=== PATIENT | male | born 1960 ===

== ENCOUNTER 2023-01-04 10:32 | Day surgery (SDC) | payer OTHER, SELFPAY ==
--- NOTE | 2023-01-04 | PATH_ITS ---
[facility] Accession Number: [id number] No. of containers..02 Tissue . 01 Material submitted: . PART A: colon - CECUM POLYP PART B: colon - SIGMOID POLYP . 01 Diagnosis: A. Cecal Polyp: Tubular adenoma. . B. Sigmoid Colon Polyp: Tubular adenoma. MRV 01/08/2023 1523 Local . 01 Electronically signed: . Taco Bates MD, PhD, Pathologist NPI- [id number] . 01 Gross description: . Part A: CECUM POLYP: Received in formalin are 4 fragment(s) of dias, soft tissue measuring 0.1 x 0.1 x 0.1 cm to 0.8 x 0.7 x 0.7 cm submitted entirely in 1 cassette(s) Part B: SIGMOID POLYP: Received in formalin is 1 fragment(s) of dias, soft tissue measuring 0.3 x 0.2 x 0.2 cm submitted entirely in 1 cassette(s) /MIL 01/07/2023 0040 Local . 01 Pathologist provided ICD-10: D12.0, D12.5 . 01 CPT . 624526, 961064 Specimen Comment: A courtesy copy of this report has been sent to [phone] Performed at: 01 [facility] [address] [place] [address] [address], [place], [place] [id number] MD Luis Miguel Farfan MD Phone: [phone]
[2023-01-04 10:49] VITALS: BP 135/77; PULSE 43; RESP 16; TEMP 36.7; O2SAT 100; BMI 23.6
[2023-01-04] MEDS: LACTATED RINGERS 1,000 ML 42 ML IV (11:01)
--- NOTE | 2023-01-04 12:06 | PM.HP.1 ---
History of Present Illness History of Present Illness Date Patient Seen: 01/04/23 Time Patient Seen: 12:06 Chief complaint: Screening Colonoscopy Narrative: Here for colon cancer screening. Family history of colon cancer in his mom and half brother. [facility] Social History household members: spouse Smoking Status: Never smoker alcohol intake: current Meds Home Medications and Allergies Home Medications Medication Instructions Recorded Confirmed Type flaxseed 1,000 mg capsule mg PO 01/04/23 History glucosamine sulfate 500 mg tablet 500 mg PO DAILY 01/04/23 01/04/23 History (Glucosamine) Allergies Allergy/AdvReac Type Severity Reaction Status Date / Time No Known Drug Allergies Allergy Verified 01/04/23 10:48 Exam Vital Signs (past 8 hours): - 01/04/23 10:49 Temperature 98.1 F Pulse Rate 43 L Respiratory Rate 16 Blood Pressure 135/77 Pulse Oximetry 100 Oxygen Delivery Method Room Air Oxygen Delivery Method Room Air Const General: cooperative HENMT Head: normal to inspection Eyes General: appearance normal, both eyes and all related structures Neck Neck: normal visual inspection Chest Chest: normal inspection of the chest Resp Effort & Inspection: normal respiratory effort Cardio Rate: regular rate GI Inspection: normal to inspection Skin General: no rashes or lesions noted Neuro General: patient alert and patient awake Extrem General: normal to inspection and no pedal edema Psych Appearance: grossly normal Assessment & Plan Assessment & Plan narrative: 62-year-old male with a family history of colon cancer. Colon cancer screening is indicated today. Colonoscopy is pursued today.
--- NOTE | 2023-01-04 12:47 | P.OP.COLON_ITS ---
Operative Date/Time/Diagnoses Date of procedure: 01/04/23 Time of procedure: 12:47 Pre-op diagnosis: Family history of colon cancer Post-op diagnosis: same Procedure & Clinicians Study performed: Colonoscopy with hot snare polypectomy and cold forceps polypectomy Same procedure as scheduled: Yes Indications: Family history of colon cancer Surgeon: Luke Savage Procedure Notes SCOAP/Timeout: Done Procedure in detail: After the risks and benefits were explained, written and verbal informed consent was obtained. The patient was brought into the procedure room and placed into the left lateral decubitus position. Please see anesthesia notes for sedation details. Digital rectal examination was accomplished. The scope was introduced into the patient and advanced under direct visualization to the cecum as identi fied by the appendiceal orifice and ileocecal valve. The scope was slowly withdrawn to carefully examine the mucosa for any defects or lesions. Comprehensive imaging was accomplished throughout the rectum including the dentate line. The colon was decompressed, the scope was then removed from the patient who tolerated the procedure well. Adult colonoscope Bowel prep adequate Scope withdrawal time: 20 minutes Sedation minutes: 29 Complications: none Impression: There was some diverticulosis in the left colon. In the sigmoid there was a 6 mm sessile polyp removed with hot snare. In the cecum there was an approximately 10 mm sessile polyp immediately adjacent to the appendiceal orifice. This was addressed with a hot snare. There was a small fragment of adenomatous mucosa that remained after the initial excision. This small focus was just on the lip of the appendiceal orifice. I removed this with cold forceps. All of the polyp appeared to have been excised. Endoscopic diagnosis 1. Colon polyps 2. Diverticulosis Post-procedure Plan for aftercare: 1. Await histopathology. 2. Considering the location of the larger polyp in the cecum and the required piecemeal excision, surveillance colonoscopy will likely be suggested for 6 months. Disposition: PACU
[2023-01-04 12:50] VITALS: BP 80/51; PULSE 43; RESP 13; TEMP 36.4; O2SAT 99
[2023-01-04 12:53] VITALS: BP 82/48; PULSE 41; RESP 14; O2SAT 99
[2023-01-04 12:58] VITALS: BP 85/52; PULSE 45; RESP 17; O2SAT 100
[2023-01-04 13:05] VITALS: BP 94/68; PULSE 42; RESP 12; RESP 16; TEMP 36.4; TEMP 36.6; O2SAT 100
[2023-01-04 13:35] VITALS: BP 113/73; PULSE 41; RESP 18; O2SAT 100
--- NOTE | 2023-01-04 13:37 | SUR.PHASEII ---
Gave pt discharge instructions and pt states he is ready to go but that he is tired. pt states he is ready to eat and to go home and take a nap.
== END 2023-01-04 13:39 | disposition home or self-care (01) ==
PROVIDERS: PCP Internal Medicine; Referring Provider Internal Medicine Gastroenterology; Visit Provider Internal Medicine Gastroenterology
PROC: 0DJD8ZZ Inspection of Lower Intestinal Tract, Via Natural or Artificial Opening Endoscopic (ICD-10-PCS; CPT 45378; principal; 2023-01-04 11:30)
DX: Z12.11 Encounter for screening for malignant neoplasm of colon (principal); Z80.0 Family history of malignant neoplasm of digestive organs; K57.30 Diverticulosis of large intestine without perforation or abscess without bleeding; D12.0 Benign neoplasm of cecum; D12.5 Benign neoplasm of sigmoid colon
CPT/HCPCS: 45385; 45380; J2704

== ENCOUNTER 2023-08-23 13:41 | Day surgery (SDC) | payer OTHER, SELFPAY ==
--- NOTE | 2023-08-23 | PATH_ITS ---
[facility] Accession Number: [id number] No. of containers..01 Tissue . 01 Material submitted: . colon - POLYP APPENDICEAL ORIFICE . 01 Diagnosis: Appendiceal Orifice, Polyp: Tubular adenoma. MRV 08/25/2023 1354 Local . 01 Electronically signed: . Matilde Perez MD, Pathologist NPI- [id number] . 01 Gross description: . POLYP APPENDICEAL ORIFICE: Received in formalin are multiple fragment(s) of dias, soft tissue measuring 0.1 x 0.1 x 0.1 cm to 0.4 x 0.4 x 0.1 cm submitted entirely in 1 cassette(s) /MLI 08/24/2023 2242 Local . 01 Pathologist provided ICD-10: D12.1 . 01 CPT . 242815 Specimen Comment: A courtesy copy of this report has been sent to [phone] Performed at: 01 [facility] [address] [place] [address] [address], [place], [place] [id number] MD Luis Miguel Farfan MD Phone: [phone]
[2023-08-23 14:07] VITALS: BP 148/75; PULSE 53; RESP 17; TEMP 36.5; O2SAT 97
[2023-08-23] MEDS: LACTATED RINGERS 1,000 ML 120 ML IV (14:14)
--- NOTE | 2023-08-23 14:14 | P.HP_ITS ---
History of Present Illness History of Present Illness Date Patient Seen: 08/23/23 Time Patient Seen: 14:14 Chief complaint: Dx Colonoscopy Narrative: Here for surveillance colonoscopy. History of adenomatous cecal polyp removed by way of piecemeal polypectomy. [facility] Social History household members: spouse Smoking Status: Never smoker alcohol intake: current Meds Home Medications and Allergies Home Medications Medication Instructions Recorded Confirmed Type flaxseed 1,000 mg capsule mg PO 01/04/23 History glucosamine sulfate 500 mg tablet 500 mg PO DAILY 01/04/23 01/04/23 History (Glucosamine) Allergies Allergy/AdvReac Type Severity Reaction Status Date / Time No Known Drug Allergies Allergy Verified 08/23/23 13:57 Review of Systems Review of Systems ROS: Yes All systems reviewed with the patient and are negative except as otherwise documented Exam Vital Signs (past 8 hours): - 08/23/23 14:07 Temperature 97.7 F Pulse Rate 53 L Respiratory Rate 17 Blood Pressure 148/75 H Pulse Oximetry 97 Oxygen Delivery Method Room Air Oxygen Delivery Method Room Air Const General: cooperative HENMT Head: normal to inspection Eyes General: appearance normal, both eyes and all related structures Neck Neck: normal visual inspection Chest Chest: normal inspection of the chest Resp Effort & Inspection: normal respiratory effort Cardio Rate: regular rate GI Inspection: normal to inspection Skin General: no rashes or lesions noted Neuro General: patient alert and patient awake Extrem General: normal to inspection and no pedal edema Psych Appearance: grossly normal Assessment & Plan Assessment & Plan narrative: 63-year-old male with a personal history of colon polyps. Colonoscopy for surveillance is pursued today.
--- NOTE | 2023-08-23 14:15 | PM.PREOP ---
Pre-operative Note Interval Note History & Physical reviewed/Exam performed by Physician: Yes Changes to H&P: No ASA Class (for procedural sedation): I
--- NOTE | 2023-08-23 15:20 | P.OP.COLON_ITS ---
Operative Date/Time/Diagnoses Date of procedure: 08/23/23 Time of procedure: 15:20 Pre-op diagnosis: History of colon polyps. Post-op diagnosis: same Procedure & Clinicians Study performed: Colonoscopy with cold snare polypectomy, cold forceps polypectomy, and tissue ablation Same procedure as scheduled: Yes Indications: Personal history of colon polyps. Piecemeal adenoma was removed from the region of the appendiceal orifice. Surgeon: Luke Savage Procedure Notes SCOAP/Timeout: Done Procedure in detail: After the risks and benefits were explained, written and verbal informed consent was obtained. The patient was brought into the procedure room and placed into the left lateral decubitus position. Please see anesthesia notes for sedation details. Digital rectal examination was accomplished. The scope was introduced into the patient and advanced under direct visualization to the cecum as identified by the appendiceal orifice and ileocecal valve. The scope was slowly withdrawn to carefully examine the mucosa for any defects or lesions. Comprehensive imaging was accomplished throughout the rectum including the dentate line. The colon was decompressed, the scope was then removed from the patient who tolerated the procedure well. Pediatric colonoscope Bowel prep fair; with copious irrigation and suction this was rendered adequate. Scope withdrawal time: 17 minutes Sedation minutes: 28 Complications: none Impression: Tortuous colon was identified. In the cecum there was a residual adenomatous appearing polyp perhaps 5 mm in greatest dimension. This was removed successfully with cold snare. On the proximal edge of the polyp closest to the scope I additionally applied cold forceps to remove any potential residual adenomatous tissue in that location. I then used the tip of the snare to cauterize this location. No residual polyp was evident after our efforts. Di verticulosis was noted in the left colon. Otherwise no significant additional anomalies. Endoscopic diagnosis 1. Recurrent periappendiceal orifice polyp status post snare excision. 2. Diverticulosis Post-procedure Plan for aftercare: 1. Await histopathology. 2. Repeat colonoscopy will likely be suggested for 3 years. Disposition: PACU
[2023-08-23 15:22] VITALS: BP 90/59; PULSE 50; RESP 16; TEMP 36.3; O2SAT 99
[2023-08-23 15:27] VITALS: BP 101/64; PULSE 57; RESP 16; O2SAT 100
[2023-08-23 15:32] VITALS: BP 103/56; PULSE 49; RESP 15; O2SAT 100
[2023-08-23 15:37] VITALS: BP 110/70; PULSE 44; RESP 16; O2SAT 100
== END 2023-08-23 15:50 | disposition home or self-care (01) ==
PROVIDERS: PCP Internal Medicine; Referring Provider Internal Medicine Gastroenterology; Visit Provider Internal Medicine Gastroenterology
PROC: 0DJD8ZZ Inspection of Lower Intestinal Tract, Via Natural or Artificial Opening Endoscopic (ICD-10-PCS; CPT 45378; principal; 2023-08-23 14:30)
DX: Z86.010 Personal history of colon polyps (principal); K63.89 Other specified diseases of intestine; K57.30 Diverticulosis of large intestine without perforation or abscess without bleeding; K63.5 Polyp of colon
CPT/HCPCS: 45385; 45380; J2704